=== PATIENT | female | born 1980 | race Caucasian/White ===

== ENCOUNTER 2025-03-04 13:00 | Outpatient (RCR) | payer OTHER, SELFPAY ==
[2024-12-24 12:53] VITALS: BMI 66.6
[2024-12-24 14:10] VITALS: BMI 66.6
[2025-03-04 13:05] VITALS: BMI 66.4
[2025-03-04 13:43] VITALS: BMI 66.4
== END 2025-03-17 09:01 | disposition home or self-care (01) ==
LOC: ANHDMC 13:00
DX: E66.01 Morbid (severe) obesity due to excess calories (principal); Z68.44 Body mass index [BMI] 60.0-69.9, adult; Z71.89 Other specified counseling
CPT/HCPCS: 97802; 97803